=== PATIENT | female | born 1995 | race Caucasian/White ===

== ENCOUNTER 2023-07-12 20:58 | Emergency (ER) | payer BC, SELFPAY ==
--- OUTSIDE RECORDS SUMMARY | 2023-07-12 21:01 | XMS REPORT | Continuity of Care Document ---
:1995 Author Organization [facility] t Address [address] [place] [address] [address] [place] [address] Care Team Providers Name Role Phone PCP, PATIENT DOES NOT HAVE A Primary Care Physician Unavaila MARINA Welch Attending Clinician Unavailable Marina Syed MD Attending Clinician Unknown, Attending Attending Clinician Unavailable Doctor Unassigned, [place] Attending Clinician Unavailable SHEILA MELARA Attending Clinician Unavailable Only, Ang Db Test Attending Clinician Unavailable Sheila Centeno Attending Clinician Payers Payer Name Policy Type Policy Number Effective Date Expiration Date [id number] 00:00:00 OUT OF STATE Problems This patient has no known problems. Allergies, Adverse Reactions, Alerts Allergy Allergy Status Severity Reaction(s) Onset Inactive Treating Comm ents Source Name Type Date Date Clinician CODEINE DRUG Active Unknown-Cmnt Uni vers INGREDI 01-23 ity of 00:00: 00 Medical Branch HYDROCOD DRUG Active Unknown-Cmnt Un temla ONE INGREDI -17 ity of 00:00: 00 Medical Branch Codeine Propensi Active Unknown - Univ ers ty to See comments 01-23 ity of adverse 00:00: [place] reaction 00 Medical Branch Hydrocod Propensi Active Unknown - Uni vers one ty to See comments - ity of adverse 00:00: [place] reaction 00 Medical [facility] NO KNOWN Drug Active Univers ALLERGIE Class ity of S [facility] Social History Social Habit Start Date Stop Date Quantity Comments Source Exposure to 2023-01-13 2023-01-23 Not sure [facility] SARS-CoV-2 (event) 00:00:00 12:09:00 Medica l Branch Sex Assigned At [birth year] [facility] y of [place] 00:00:00 00:00:00 Medical Branch Smoking Status Start Date Stop Date Source Tobacco smoking consumption [facility] unknown [place] Medications Ordered Filled Start Stop Current Ordering Indication Dosage Frequency Signature Comments Components Source Medication Medication Date Date Medication? Clinician (SIG) Name Name maalox:diph Yes [id number] 10mL Swish and Univers enhydrAMINE 4-17 spit out ity of :lidocaine 00:00: 10 mL [place] 2 % viscous 00 every 8 Medic al 1:1:1 (eight) Branch hours as needed for Oral mucositis. maalox:diph Yes [id number] 10mL Swish and Univers enhydrAMINE 4-17 spit out ity of :lidocaine 00:00: 10 mL [place] 2 % viscous 00 every 8 Medic al 1:1:1 (eight) Branch hours as needed for Oral mucositis. amoxicillin 2022- No [id number] 500mg Take 1 Univers 500 mg 01-23 tablet by ity of tablet 00:00: 04:59 mouth in [place] 00 :00 the Medical morning Branch and 1 tablet in the evening. Do all this for 10 days. amoxicillin 2022- No [id number] 500mg Take 1 Univers 500 mg -02-03 tablet by ity of tablet 00:00: 04:59 mouth in [place] 00 :00 the [facility] morning Branch and 1 tablet in the evening. Do all this for 10 days. Vital Signs Vital Name Observation Time Observation Value Comments Source Systolic blood 2023-01-23 17:39:00 131 mm[Hg] Univer sity of pressure [facility] Diastolic blood 2023-01-23 17:39:00 75 mm[Hg] [facility] 2023-01-23 17:39:00 94 /min [facility] Body temperature 2023-01-23 17:39:00 37 Deb [facility] [place] [facility] Respiratory rate 2023-01-23 17:39:00 14 /min [facility] Body height 2023-01-23 17:39:00 154.9 cm [facility] Body weight 2023-01-23 17:39:00 77.157 kg [facility] BMI 2023-01-23 17:39:00 32.14 kg/m2 [facility] Oxygen saturation in 2023-01-23 17:39:00 99 /min University Arterial blood by [facility] Pulse oximetry [place] Procedures Procedure Date / Time Performed Performing Clinician Sourc e POCT MOLECULAR STREP 2023-01-23 17:42:00 Unknown, Attending Univ [facility] CONSENT/REFUSAL FOR 2023-01-23 17:08:32 Doctor Unassigned, No Un [facility] DIAGNOSIS AND Name [facility] TREATMENT Encounters Start End Encounter Admission Attending Care Care Encounter Source Date/Time Date/Time Type Type Clinicians Facility Department ID 2023-01-23 2023-01-23 Outpatient R ESTEVAN [facility] [id number] Univers 12:20:00 13:10:53 MARINA ity [facility] 2023-01-23 2023-01-23 Urgent Marina Syed [facility] [id number] [id number] Univers 12:20:00 12:40:00 Care Unknown, Attending [facility] [id number] ity of [place] [id number] Tae as EDDIE?BLEA [phone] [address] MEDICAL OFFICE BUILDING 2023-01-23 2023-01-23 Orders Doctor TAYE [id number] Univers 00:00:00 00:00:00 Only Unassigned, ANDRES [id number] ity of [place] [facility] [id number] Tae as [phone] [place] [address] Branch 2023-01-23 2023-01-23 Letter Estevan [facility] [id number] Univers 00:00:00 00:00:00 (Out) [facility] [id number] it y of [place] [id number] Tae as EDDIE?BLEA [id number] [address] MEDICAL OFFICE BUILDING 2021-10-15 2021-10-15 Outpatient R KELTON [facility] [id number] Univers 18:30:00 18:54:46 SHEILA ity o f [facility] 2021-10-15 2021-10-15 Laboratory Only, Ang Db Test [facility] 1.2.8 40.114 [id number] Univers 18:30:00 18:45:00 Only Sheila Melara [facility] [id number] ity of [place] [id number] Tae as EDDIE?BLEA [phone] [place] [address] MEDICAL OFFICE BUILDING 2021-10-15 2021-10-15 Letter Doctor TAYE [id number] [place] [address] 00:00:00 00:00:00 (Out) Unassigned, ANDRES [id number] ity of [place] [facility] [id number] Tae as [phone] [address] 2021-10-13 2021-10-13 Outpatient R [facility] [id number] Univers 11:30:00 11:30:00 [facility] Results Test Description Test Time Test Comments Results Result Comments Source POCT MOLECULAR STREP 2023-01-23 17:49:47 Test Item Value Reference Range Interpretation Comme nts POCT Molecular Strep (test code = 10040-9) Negative Negative Lab Interpretation (test code = 06968-8) Normal [facility]
[2023-07-12 21:37] LABS: Specific Gravity 1.026 (1.005-1.030)
[2023-07-12] MEDS ORDERED: BUPIVACAINE 0.5% PF 10 ML VIAL ONE (21:37)
[2023-07-12] MEDS ORDERED: LIDOCAINE 1% MPF 5 ML VIAL ONE (21:37)
[2023-07-12 21:38] LABS: Specific Gravity 1.026 (1.005-1.030); Urine Bilirubin NEGATIVE (Negative); Urine Blood 2+ (Negative); Urine Clarity Clear (Clear); Urine Color Light-Yellow (Yellow); Urine Glucose NEGATIVE (Negative); Urine Protein NEGATIVE (Negative); Urine RBC None Seen /HPF (None Seen); Urine Urobilinogen Normal (Normal)
[2023-07-12 21:39] LABS: Urine Bacteria None Seen /HPF (<20)
--- NOTE | 2023-07-12 22:09 | EDPHYS ---
Physician Documentation [facility] Name: Alannah Givens Age: 28 yrs Sex: Female : 1995 Arrival Date: 07/12/2023 Time: 20:58 Bed 10 Private MD: ED Physician Bertrand Fischer HPI: 07/12 21:48 This 28 yrs old Female presents to ER via Ambulatory with complaints of Toe Injury, kb Vaginal Bleeding. 21:48 The patient presents with vaginal bleeding that is. Onset: The symptoms/episode kb began/occurred 2 day(s) ago. Modifying factors: The symptoms are alleviated by nothing, the symptoms are aggravated by nothing. Associated signs and symptoms: Pertinent positives: vaginal bleeding. Severity of symptoms: At their worst the symptoms were mild, in the emergency department the symptoms are unchanged. The patient has not experienced similar symptoms in the past. The patient has not recently seen a physician. Pt reports she had her period on 07/01 but it was a few days late. States it completed, then she started spotting again 2 days ago. Came to make sure she wasn't and having a miscarriage. Also reports she hit her right great toe 1.5 weeks ago and her nail flipped up. States she has been keeping a bandage one it, but the nail still comes up and causes pain so she would like the nail removed. . 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 - Social history:: Smoking status: Reported history of juuling and/or vaping. ROS: 21:47 Constitutional: Negative for fever, chills, and weight loss, kb 21:47 : Positive for vaginal bleeding, 21:47 MS/extremity: Positive for partial nail avulsion, 21:47 All other systems are negative, Exam: 21:47 Constitutional: This is a well developed, well nourished patient who is awake, alert, kb and in no acute distress. Head/Face: Normocephalic, atraumatic. ENT: Moist Mucous membranes Cardiovascular: Regular rate Respiratory: Respirations even and unlabored. No increased work of breathing. Talking in full sentences Abdomen/GI: Soft, non-tender. No distention Skin: Warm, dry with normal turgor. Normal color. Neuro: Awake and alert, GCS 15, oriented to person, place, time, and situation. Moves all extremities. Normal gait. 21:47 Musculoskeletal/extremity: Nails: partial avulsion, of the right first toe, Vital Signs: 21:11 BP 138 / 74; Pulse 74; Resp 18 S; Temp 97.7(TE); Pulse Ox 100% on R/A; Weight 68.04 kg; cm10 Height 5 ft. 1 in. ; Pain 5/10; 21:11 Body Mass Index 28.34 (68.04 kg, 154.94 cm) cm10 21:11 Pain Scale: Adult cm10 Procedures: 21:46 Nerve block: (digital) of right first toe Medication: Lidocaine 1% without epinephrine kb Marcaine 0.5%, Amount: 4 mls were injected, Effect: the patient has resolution of the pain, Set up for procedure. Performed by Krista CALHOUN Patient tolerated well. MDM: 21:08 Patient medically screened. kb 21:48 Data reviewed: vital signs, nurses notes. kb 21:50 Differential diagnosis: menorrhea, urinary tract infection. Counseling: I had a kb detailed discussion with the patient and/or guardian regarding the historical points, exam findings, and any diagnostic results supporting the discharge/admit diagnosis, lab results, the need for outpatient follow up, an OB/Gyne specialist, to return to the emergency department if symptoms worsen or persist or if there are any questions or concerns that arise at home. 22:07 ED course: right great toe nail removed. Pt tolerated well. New nail has begun growing kb underneath it. . 07/12 21:17 Order name: Test, Urine; Complete Time: 21:39 kb 07/12 21:17 Order name: Urinalysis w/ reflexes; Complete Time: 21:39 kb Administered Medications: 21:44 Drug: Lidocaine Infiltration (1 %) 1 vials 5 ml Infiltration once; to bedside Volume: 5 mb9 ml; Route: Infiltration; 21:44 Drug: Bupivacaine Infiltration (0.5 %) 1 vials 10 ml Infiltration once Volume: 10 ml; mb9 Route: Infiltration; Disposition: 07/13 00:09 Co-signature as Attending Physician, Bertrand Fischer MD I agree with the assessment sp4 and plan of care. I reviewed the patient's care provided by the Advanced Practice Provider and agree with the diagnosis and treatment plan. Disposition Summary: 07/12/23 22:08 Discharge Ordered Notes: Location: Home kb Condition: Stable kb Diagnosis - nail avulsion - right great toe kb - Irregular menstruation, unspecified kb Followup: kb - With: Emergency Department - When: As needed - Reason: Worsening of condition Followup: kb - With: Private Physician - When: 2 - 3 days - Reason: Recheck today's complaints, Continuance of care, Re-evaluation by your physician Discharge Instructions: - Discharge Summary Sheet kb - Nail Avulsion kb - Abnormal Uterine Bleeding, [id number] kb - Fingernail or Toenail Removal, Adult, Care After kb Forms: - Medication Reconciliation Form kb - Thank You Letter kb - Antibiotic Education kb - Prescription Opioid Use kb - Patient Portal Instructions kb - Leadership Thank You Letter kb Signatures: Dispatcher [employer] EDKrista Milner, CUSTOM FRAME ASSEMBLER-C CUSTOM FRAME ASSEMBLER-Monica James, RN RN mb9 Bertrand Fischer MD MD sp4 Karissa Reyes, RN RN cm10
--- NOTE | 2023-07-12 22:09 | ER ---
Nurse's Notes [facility] Name: Alannah Givens Age: 28 yrs Sex: Female : 1995 Arrival Date: 07/12/2023 Time: 20:58 Bed 10 Private MD: Diagnosis: nail avulsion - right great toe;Irregular menstruation, unspecified Presentation: 07/12 21:11 Chief complaint: Patient states: vaginal bleeding onset 2 days ago. Pt states that she cm10 had her period on 07/01 and that she has had spotting that started 2 days ago. Pt states that this morning she started having more pain and heavier bleeding. Pt also reports pain to her right big toe. Pt states that she hit her toe and broke the toe nail. Pt states having fake nail on her toe. Coronavirus screen: Vaccine status: Patient reports being unvaccinated. Client denies travel out of the [place] in the last 14 days. Ebola Screen: Patient denies travel to an Ebola-affected area in the 21 days before illness onset. No symptoms or risks identified at this time. Initial Sepsis Screen: Does the patient meet any 2 criteria? No. Patient's initial sepsis screen is negative. Does the patient have a suspected source of infection? No. Patient's initial sepsis screen is negative. Risk Assessment: Do you want to hurt yourself or someone else? Patient reports no desire to harm self or others. Onset of symptoms was July 12, 2023. 21:11 Method Of Arrival: Ambulatory cm10 21:11 Acuity: MARY JANE 3 cm10 Triage Assessment: 21:20 General: Appears in no apparent distress. comfortable, Behavior is calm, cooperative. cm10 Pain: Complains of pain in abdomen Pain does not radiate. Pain currently is 5 out of 10 on a pain scale. Quality of pain is described as crampy, Pain began 2-3 days ago. Is continuous, Also complains of. EENT: No deficits noted. No signs and/or symptoms were reported regarding the EENT system. Neuro: No deficits noted. Level of Consciousness is awake, alert, obeys commands, Oriented to person, place, time, situation. Cardiovascular: No deficits noted. Respiratory: No deficits noted. Airway is patent Respiratory effort is even, unlabored, Respiratory pattern is regular, symmetrical. GI: No deficits noted. No signs and/or symptoms were reported involving the gastrointestinal system. : Reports pain in suprapubic area vaginal bleeding that is spotty. Derm: No deficits noted. No signs and/or symptoms reported regarding the dermatologic system. Skin is intact, Skin is pink, warm \T\ dry. Musculoskeletal: No deficits noted. No signs and/or symptoms reported regarding the musculoskeletal system. 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 - Social history:: Smoking status: Reported history of ju[place] and/or vaping. Screenin:22 [facility] ED Fall Risk Assessment (Adult) History of falling in the last 3 months, cm10 including since admission No falls in past 3 months (0 pts) Confusion or Disorientation No (0 pts) Intoxicated or Sedated No (0 pts) Impaired Gait No (0 pts) Mobility Assist Device Used No (0 pt) Altered Elimination No (0 pt) Score/Fall Risk Level 0 - 2 = Low Risk Oriented to surroundings, Maintained a safe environment, Hourly rounding (assess needs \T\ fall precautionary measures) done. Abuse screen: Denies threats or abuse. Denies injuries from another. Nutritional screening: No deficits noted. Tuberculosis screening: No symptoms or risk factors identified. Assessment: 21:30 Reassessment: see triage assessment. mb9 22:11 Reassessment: Patient and/or family updated on plan of care and expected duration. Pain mb9 level reassessed. Patient is alert, oriented x 3, equal unlabored respirations, skin warm/dry/pink. Patient states feeling better. Patient states symptoms have improved. Vital Signs: 21:11 BP 138 / 74; Pulse 74; Resp 18 S; Temp 97.7(TE); Pulse Ox 100% on R/A; Weight 68.04 kg; cm10 Height 5 ft. 1 in. ; Pain 5/10; 21:11 Body Mass Index 28.34 (68.04 kg, 154.94 cm) cm10 21:11 Pain Scale: Adult cm10 ED Course: 21:01 Patient arrived in ED. ag3 21:08 Krista Kimbrough FNP-C is PHCP. kb 21:08 Bertrand Fischer MD is Attending Physician. kb 21:14 Triage completed. cm10 21:15 Arm band placed on Patient placed in an exam room, on a stretcher. cm10 21:19 Monica Dorantes, RN is Primary Nurse. mb9 21:30 Placed in gown. Bed in low position. Call light in reach. Side rails up X 1. Client mb9 placed on continuous cardiac and pulse oximetry monitoring. NIBP monitoring applied. 21:30 Test, Urine Sent. mb9 21:30 Urinalysis w/ reflexes Sent. mb9 22:11 No provider procedures requiring assistance completed. Patient did not have IV access mb9 during this emergency room visit. Administered Medications: 21:44 Drug: Lidocaine Infiltration (1 %) 1 vials 5 ml Infiltration once; to bedside Volume: 5 mb9 ml; Route: Infiltration; 21:44 Drug: Bupivacaine Infiltration (0.5 %) 1 vials 10 ml Infiltration once Volume: 10 ml; mb9 Route: Infiltration; Medication: 21:22 VIS not applicable for this client. cm10 Outcome: 22:08 Discharge ordered by . kb 22:11 Discharged to home ambulatory, mb9 22:11 Condition: stable 22:11 Discharge instructions given to patient, Instructed on discharge instructions, follow up and referral plans. Demonstrated understanding of instructions, follow-up care, 22:12 Patient left the ED. mb9 Signatures: Krista Kimbrough FNP-C FNP-Taina Ashton ag3 Monica Dorantes, RN RN mb9 Karissa Reyes RN RN cm10
[2023-07-12 23:28] VITALS: BP 138/74; TEMP 97.7; O2SAT 100
== END 2023-07-12 22:12 | disposition home or self-care (01) ==
LOC: ER 20:58
PROC: 0HDRXZZ Extraction of Toe Nail, External Approach (ICD-10-PCS; principal; 2023-07-12)
DX: S91.201A Unspecified open wound of right great toe with damage to nail, initial encounter (principal); N92.6 Irregular menstruation, unspecified
CPT/HCPCS: 64450; 81001; 81025; 99284; J2001

== ENCOUNTER 2023-09-11 12:11 | Emergency (ER) | payer SELFPAY ==
--- OUTSIDE RECORDS SUMMARY | 2023-09-11 12:15 | XMS REPORT | Continuity of Care Document ---
:1995 Author Organization [facility] t Address [address] [place] [address] [place] [address] Care Team Providers Name Role Phone PCP, PATIENT DOES NOT HAVE A Primary Care Physician UnavailMARINA Leong Attending Clinician Unavailable Marina Syed MD Attending Clinician Unknown, Attending Attending Clinician Unavailable Doctor Unassigned, [place] Attending Clinician Unavailable SHEILA MELARA Attending Clinician Unavailable Only, Ang Db Test Attending Clinician Unavailable Sheila Centeno Attending Clinician Payers Payer Name Policy Type Policy Number Effective Date Expiration Date S bonnie [id number] 2021 00:00:00 OUT OF STATE Problems This patient has no known problems. Allergies, Adverse Reactions, Alerts Allergy Allergy Status Severity Reaction(s) Onset Inactive Treating Comm ents Source Name Type Date Date Clinician CODEINE DRUG Active Unknown-Cmnt Uni vers INGREDI -17 ity of 00:00: [facility] HYDROCOD DRUG Active Unknown-Cmnt Un telma ONE INGREDI 4-17 ity of 00:00: 00 [facility] Branch Codeine Propensi Active Unknown - Univ ers ty to See comments - ity of adverse 00:00: [place] reaction 00 Medical [facility] Hydrocod Propensi Active Unknown - Uni vers one ty to See comments 4-17 ity of adverse 00:00: [place] reaction 00 [facility] NO KNOWN Drug Active Univers ALLERGIE Class ity of S [facility] [place] Social History Social Habit Start Date Stop Date Quantity Comments Source Exposure to 2023-01-13 2023-01-23 Not sure [facility] SARS-CoV-2 (event) 00:00:00 12:09:00 Medica l Branch Sex Assigned At [birth year] [facility] [place] 00:00:00 00:00:00 Medical Branch Smoking Status Start Date Stop Date Source Tobacco smoking consumption [facility] unknown Branch Medications Ordered Filled Start Stop Current Ordering Indication Dosage Frequency Signature Comments Components Source Medication Medication Date Date Medication? Clinician (SIG) Name Name maalox:diph Yes [id number] 10mL Swish and Univers enhydrAMINE 4-17 spit out ity of :lidocaine 00:00: 10 mL [place] 2 % viscous 00 every 8 Medic al 1:1:1 (eight) Branch hours as needed for Oral mucositis. maalox:diph Yes [id number] 10mL Swish and Univers enhydrAMINE 4-17 spit out ity of :lidocaine 00:00: 10 mL [place] 2 % viscous 00 every 8 Medic al 1:1:1 (eight) Branch hours as needed for Oral mucositis. amoxicillin 3- No [id number] 500mg Take 1 Univers 500 mg 4-23 01- tablet by ity of tablet 00:00: 04:59 mouth in [place] 00 :00 the Medical morning Branch and 1 tablet in the evening. Do all this for 10 days. amoxicillin 2022- No [id number] 500mg Take 1 Univers 500 mg 4-17 - tablet by ity of tablet 00:00: 04:59 mouth in [place] 00 :00 the Medical morning Branch and 1 tablet in the evening. Do all this for 10 days. Vital Signs Vital Name Observation Time Observation Value Comments Source Systolic blood 2023-01-23 17:39:00 131 mm[Hg] Univer sity of pressure [facility] [place] Diastolic blood 2023-01-23 17:39:00 75 mm[Hg] Unive rsity of [facility] Heart rate 2023-01-23 17:39:00 94 /min [facility] Body temperature 2023-01-23 17:39:00 37 Deb [facility] Respiratory rate 2023-01-23 17:39:00 14 /min [facility] Body height 2023-01-23 17:39:00 154.9 cm [facility] Body weight 2023-01-23 17:39:00 77.157 kg [facility] BMI 2023-01-23 17:39:00 32.14 kg/m2 [facility] Oxygen saturation in 2023-01-23 17:39:00 99 /min [facility] Arterial blood by [facility] Pulse oximetry [place] Procedures Procedure Date / Time Performed Performing Clinician Blanca e POCT MOLECULAR STREP 2023-01-23 17:42:00 Unknown, Attending [facility] CONSENT/REFUSAL FOR 2023-01-23 17:08:32 Doctor Unassigned, No Un [facility] DIAGNOSIS AND Name [facility] TREATMENT Encounters Start End Encounter Admission Attending Care Care Encounter Source Date/Time Date/Time Type Type Clinicians Facility Department ID 2023-01-23 2023-01-23 Outpatient R ESTEVAN [facility] [id number] Univers 12:20:00 13:10:53 MARINA ity of [facility] [place] 2023-01-23 2023-01-23 Urgent Marina Syed [facility] [id number] [id number] Univers 12:20:00 12:40:00 Care Unknown, Attending HEALTH [id number] ity of [place] [id number] Tae as EDDIE?BLEA [phone] [address] MEDICAL OFFICE BUILDING 2023-01-23 2023-01-23 Orders Doctor TAYE 1.2.840.114 [id number] Univers 00:00:00 00:00:00 Only Unassigned, ANDRES 350.1.13.10 ity of [place] [facility] [id number] Tae as [id number] [place] [address] Branch 2023-01-23 2023-01-23 Letter Estevan [facility] 1.2.840.114 [id number] Univers 00:00:00 00:00:00 (Out) [facility] [id number] it y of [place] [id number] Tae as EDDIE?BLEA [phone] [address] MEDICAL OFFICE BUILDING 2021-10-15 2021-10-15 Outpatient R KELTON [facility] [id number] Univers 18:30:00 18:54:46 SHEILA itkristal o f [facility] [place] 2021-10-15 2021-10-15 Laboratory Only, Ang Db Test [facility] 1.2.8 40.114 [id number] Univers 18:30:00 18:45:00 Only Sheila Melara [facility] 350.1.13.10 ity of [place] [id number] Tae as EDDIE?BLEA [phone] [place] [address] MEDICAL OFFICE [facility] 2021-10-15 2021-10-15 Letter Doctor TAYE 1.2.840.114 [id number] Univers 00:00:00 00:00:00 (Out) Unassigned, ANDRES 350.1.13.10 ity of [place] [facility] [id number] Tae as [phone] [address] 2021-10-13 2021-10-13 Outpatient R [facility] [id number] Univers 11:30:00 11:30:00 ity [facility] Results Test Description Test Time Test Comments Results Result Comments Source POCT MOLECULAR STREP 2023-01-23 17:49:47 Test Item Value Reference Range Interpretation Comme nts POCT Molecular Strep (test code = 18765-9) Negative Negative Lab Interpretation (test code = 41550-4) Normal [facility]
[2023-09-11 13:31] LABS: SARS-CoV-2 Antigen Rapid Res Negative (Negative)
--- NOTE | 2023-09-11 14:58 | ER ---
Nurse's Notes [facility] Name: Alannah Givens Age: 28 yrs Sex: Female : 1995 Arrival Date: 09/11/2023 Time: 12:11 Bed DIS6 Private MD: Diagnosis: Acute bronchitis, unspecified Presentation: 09/11 13:06 Chief complaint: Patient states: had a bad cough this week, chest congestion, stuffy iw nose, can't hear out of ears, pain behind ears and in left ribs, feels dehydrated. Coronavirus screen: Client presents with at least one sign or symptom that may indicate coronavirus-19. Ebola Screen: Patient negative for fever greater than or equal to 101.5 degrees Fahrenheit, and additional compatible Ebola Virus Disease symptoms Patient denies exposure to infectious person. Patient denies travel to an Ebola-affected area in the 21 days before illness onset. No symptoms or risks identified at this time. Risk Assessment: Do you want to hurt yourself or someone else? Patient reports no desire to harm self or others. 13:06 Method Of Arrival: Ambulatory iw 13:06 Acuity: MARY JANE 4 iw Historical: - Allergies: 13:07 HYDROCODONE; iw 13:07 Codeine; iw - Home Meds: 13:07 None [Active]; iw - PMHx: 13:07 None; iw - PSHx: 13:07 None; iw Vital Signs: 13:06 BP 134 / 89; Pulse 93; Resp 16; Temp 98.9; Pulse Ox 100% ; Weight 70.31 kg; Height 5 iw ft. 1 in. ; Pain 5/10; 13:06 Body Mass Index 29.29 (70.31 kg, 154.94 cm) iw 13:06 Pain Scale: Adult iw ED Course: 12:14 Patient arrived in ED. im 12:23 Emely Cadena FNP-C is PHCP. snw 12:23 Ryan Hernandez MD is Attending Physician. snw 13:07 Triage completed. iw Administered Medications: 15:19 Drug: predniSONE PO 40 mg PO once Route: PO; jl7 15:19 Drug: Famotidine PO 20 mg PO once Route: PO; jl7 15:19 Drug: ZyrTEC - Cetirizine PO 10 mg PO once Route: PO; jl7 Outcome: 14:58 Discharge ordered by MD. slaughter 15:20 Patient left the ED. jl7 Signatures: Emely Cadena, INTERNATIONAL FLIGHT ATTENDANT-C INTERNATIONAL FLIGHT ATTENDANT-Hiralw Kaylynn Santiago, RN ELE iw Geovani Palencia RN RN [email or web address] Adriana Hough
--- NOTE | 2023-09-11 14:59 | EDPHYS ---
Physician Documentation [facility] Name: Alannah Givens Age: 28 yrs Sex: Female : 1995 Arrival Date: 09/11/2023 Time: 12:11 Bed DIS6 Private MD: ED Physician Ryan Hernandez HPI: 09/11 15:03 This 28 yrs old Female presents to ER via Ambulatory with complaints of Chest snw Congestion, Nasal Congestion. 15:03 Onset: The symptoms/episode began/occurred acutely, 1 week(s) ago, and became snw persistent. Modifying factors: The patient symptoms are alleviated by nothing, the patient symptoms are aggravated by stimulation, environment. The patient has experienced similar episodes in the past. The patient has not recently seen a physician. Historical: - Allergies: 13:07 HYDROCODONE; iw 13:07 Codeine; iw - Home Meds: 13:07 None [Active]; iw - PMHx: 13:07 None; iw - PSHx: 13:07 None; iw ROS: 15:00 Eyes: Negative for injury, pain, redness, and discharge, snw 15:00 Neck: Negative for injury, pain, and swelling, Cardiovascular: Negative for chest pain, palpitations, and edema, 15:00 Abdomen/GI: Negative for abdominal pain, nausea, vomiting, diarrhea, and constipation, Back: Negative for injury and pain, : Negative for injury, bleeding, discharge, and swelling, MS/Extremity: Negative for injury and deformity, Skin: Negative for injury, rash, and discoloration, Neuro: Negative for headache, weakness, numbness, tingling, and seizure, Psych: Negative for depression, anxiety, suicide ideation, homicidal ideation, and hallucinations, 15:00 Constitutional: Positive for body aches, malaise, 15:00 ENT: Positive for hearing loss, nasal discharge, sinus congestion, 15:00 Respiratory: Positive for cough, shortness of breath, wheezing, Exam: 15:01 Constitutional: This is a well developed, well nourished patient who is awake, alert, snw and in no acute distress. Head/Face: Normocephalic, atraumatic. Eyes: Pupils equal round and reactive to light, extra-ocular motions intact. Lids and lashes normal. Conjunctiva and sclera are non-icteric and not injected. Cornea within normal limits. Periorbital areas with no swelling, redness, or edema. ENT: Nares patent. No nasal discharge, no septal abnormalities noted. Tympanic membranes are not visualized as external auditory canals are impacted with cerumen. Oropharynx with no redness, swelling, or masses, exudates, or evidence of obstruction, uvula midline. Mucous membranes moist. Neck: Trachea midline, no thyromegaly or masses palpated, and no cervical lymphadenopathy. Supple, full range of motion without nuchal rigidity, or vertebral point tenderness. No Meningismus. Chest/axilla: Normal chest wall appearance and motion. Nontender with no deformity. No lesions are appreciated. Cardiovascular: Regular rate and rhythm with a normal S1 and S2. No gallops, murmurs, or rubs. Normal PMI, no JVD. No pulse deficits. Abdomen/GI: Soft, non-tender, with normal bowel sounds. No distension or tympany. No guarding or rebound. No evidence of tenderness throughout. Back: No spinal tenderness. No costovertebral tenderness. Full range of motion. Skin: Warm, dry with normal turgor. Normal color with no rashes, no lesions, and no evidence of cellulitis. MS/ Extremity: Pulses equal, no cyanosis. Neurovascular intact. Full, normal range of motion. Neuro: Awake and alert, GCS 15, oriented to person, place, time, and situation. Cranial nerves II-XII grossly intact. Motor strength 5/5 in all extremities. Sensory grossly intact. Cerebellar exam normal. Normal gait. Psych: Awake, alert, with orientation to person, place and time. Behavior, mood, and affect are within normal limits. 15:01 Respiratory: the patient does not display signs of respiratory distress, Respirations: normal, Breath sounds: wheezing: expiratory that is moderate, is heard diffusely, Vital Signs: 13:06 BP 134 / 89; Pulse 93; Resp 16; Temp 98.9; Pulse Ox 100% ; Weight 70.31 kg; Height 5 iw ft. 1 in. ; Pain 5/10; 13:06 Body Mass Index 29.29 (70.31 kg, 154.94 cm) iw 13:06 Pain Scale: Adult iw MDM: 13:20 Patient medically screened. snw 15:01 Differential diagnosis: viral Infection, bacterial infection. Data reviewed: vital snw signs, nurses notes, lab test result(s). I considered the following discharge prescriptions or medication management in the emergency department Medications were administered in the Emergency Department. See MAR. Counseling: I had a detailed discussion with the patient and/or guardian regarding the historical points, exam findings, and any diagnostic results supporting the discharge/admit diagnosis, the presence of at least one elevated blood pressure reading (>120/80) during this emergency department visit, lab results, the need for outpatient follow up, for definitive care, to return to the emergency department if symptoms worsen or persist or if there are any questions or concerns that arise at home. Special discussion: I have referred the patient to see his PCP for further evaluation of high blood pressure. Based on the history and exam findings, there is no indication for further emergent testing or inpatient evaluation. I discussed with the patient/guardian the need to see the primary care provider for further evaluation of the symptoms. 09/11 12:38 Order name: Flu; Complete Time: 14:15 snw 09/11 12:38 Order name: Strep; Complete Time: 13:38 snw 09/11 13:09 Order name: SARS RAPID; Complete Time: 13:38 iw 09/11 13:34 Order name: Throat Culture EDMS Administered Medications: 15:19 Drug: predniSONE PO 40 mg PO once Route: PO; jl7 15:19 Drug: Famotidine PO 20 mg PO once Route: PO; jl7 15:19 Drug: ZyrTEC - Cetirizine PO 10 mg PO once Route: PO; jl7 Disposition: 16:57 Co-signature as Attending Physician, Ryan Hernandez MD I reviewed the patient's care rn provided by the Advanced Practice Provider and agree with the diagnosis and treatment plan. Disposition Summary: 09/11/23 14:58 Discharge Ordered Notes: Location: Home snw Condition: Stable snw Diagnosis - Acute bronchitis, unspecified snw Followup: snw - With: Emergency Department - When: As needed - Reason: Worsening of condition Followup: snw - With: Private Physician - When: 2 - 3 days - Reason: Recheck today's complaints, Continuance of care, Re-evaluation by your physician Discharge Instructions: - Discharge Summary Sheet snw - Acute Bronchitis, Adult snw - Rehydration, Adult snw Forms: - Work release form snw - Medication Reconciliation Form snw - Thank You Letter snw - Antibiotic Education snw - Prescription Opioid Use snw - Patient Portal Instructions snw - Leadership Thank You Letter snw Prescriptions: - albuterol sulfate 90 mcg/actuation Inhalation HFA Aerosol Inhaler - inhale 2 puff INHALATION route every 6 hours as needed for bronchospasm; 2 snw Unspecified; Refills: 0, Product Selection Permitted - Zyrtec 10 mg Oral Tablet - take 1 tablet ORAL route once daily As needed; 20 tablet; Refills: 0, Product snw Selection Permitted - Prednisone 20 mg Oral Tablet - take 2 tablets ORAL route once daily for 5 days; 10 tablet; Refills: 0, Product snw Selection Permitted - Pepcid 20 mg Oral Tablet - take 1 tablet ORAL route once daily; 20 tablet; Refills: 0, Product Selection snw Permitted Signatures: Dispatcher [employer] EDEmely Rich FNP-C CRIME SCENE SPECIALIST-Csnw Kaylynn Santiago, RN Ryan Burton MD MD rn Leal, Jahala, RN RN jl7
[2023-09-11] MEDS ORDERED: predniSONE 20 MG TAB ONE (15:28)
[2023-09-11] MEDS ORDERED: FAMOTIDINE 20 MG TAB ONE (15:28)
[2023-09-11] MEDS ORDERED: CETIRIZINE HCL 5 MG TABLET ONE (15:28)
[2023-09-11 15:35] VITALS: BP 134/89; TEMP 98.9; O2SAT 100
== END 2023-09-11 15:20 | disposition home or self-care (01) ==
LOC: ER 12:11
DX: J20.9 Acute bronchitis, unspecified (principal); Z11.52 Encounter for screening for COVID-19
CPT/HCPCS: 36415; 87070; 87081; 87804; 87811; 99282; J7512

== ENCOUNTER 2024-01-23 19:31 | Emergency (ER) | payer SELFPAY ==
--- OUTSIDE RECORDS SUMMARY | 2024-01-23 19:33 | XMS REPORT | Continuity of Care Document ---
Author Name Unknown Address [address] [facility] [address] [place] [id number] [facility] thconnect Address [address] [facility] [place] [address] Care Team Providers Care It Engineer Name Role Phone PCP, PATIENT DOES NOT HAVE A Primary Care Physic garrison MARINA Mcguire Attending Clinician Unavailable Marina Barreto MD Attending Clinician Unknown, Attending Attending Clinician Unavailab le Doctor Unassigned, [place] Attending Clinician U navailable SHEILA MELARA Attending Clinician Unavailandry e Only, Ang Db Test Attending Clinician UnavailSheila Segura Attending Clinician [phone] Payers Payer Name Policy Type Policy Number Effective Date Expirati on Date Source [facility] [id number] 2021 00:00:00 Allergies, Adverse Reactions, Alerts Allergy Name Allergy Type Status Severity Reaction(s) Onset Date Inactive Date Treating Clinician Comments Source CODEINE DRUG INGREDI Active Unknown-Cmnt 01-23 00:00: [address] [facility] HYDROCOD ONE DRUG INGREDI Active Unknown-Cmnt 01-23 00:00: 00 [facility] Codeine Propensi ty to adverse reaction s Active Unknown - See comments 01-23 00:00: 00 [facility] Hydrocod one Propensi ty to adverse reaction s Active Unknown - See comments 01-23 00:00: 00 [facility] NO KNOWN ALLERGIE S Drug Class Active [facility] Social History Social Habit Start Date Stop Date Quantity Comments Source Exposure to SARS-CoV-2 (event) 2023-01-13 00:00:00 2023-01-23 12:09:00 Not sure [facility] Sex Assigned At 1995 00:00:00 1995 00:00:00 [facility] Smoking Status Start Date Stop Date Source Tobacco smoking consumption unknown [facility] Medications Ordered Medication Name Filled Medication Name Start Date Stop Date Current Medication? Ordering Clinician Indication Dosage Frequency Signature (SIG) Comments Components Source maalox:diph enhydrAMINE :lidocaine 2 % viscous 1:1:1 01-23 00:00: 00 Yes [id number] 10mL Swish and spit out 10 mL every 8 (eight) hours as needed for Oral mucositis. [facility] amoxicillin 500 mg tablet 01-23 00:00: 00 02-03 04:59 :00 No [id number] 500mg Take 1 tablet by mouth in the morning and 1 tablet in the evening. Do all this for [address] [facility] Vital Signs Vital Name Observation Time Observation Value Comments S ource Systolic blood pressure 2023-01-23 17:39:00 131 mm[Hg] [facility] Diastolic blood pressure 2023-01-23 17:39:00 75 mm[Hg] [facility] Heart rate 2023-01-23 17:39:00 94 /min [facility] Body temperature 2023-01-23 17:39:00 37 Deb [facility] Respiratory rate 2023-01-23 17:39:00 14 /min [facility] Body height 2023-01-23 17:39:00 154.9 cm [facility] Body weight 2023-01-23 17:39:00 77.157 kg [facility] BMI 2023-01-23 17:39:00 32.14 kg/m2 [facility] Oxygen saturation in Arterial blood by Pulse oximetry 2023-01-23 17:39:00 99 /min [facility] Procedures Procedure Date / Time Performed Performing Clinicia n Source POCT MOLECULAR STREP 2023-01-23 17:42:00 Unknown, Atte pura [facility] CONSENT/REFUSAL FOR DIAGNOSIS AND TREATMENT 2023-01-23 17:08:32 Doctor Unassigned, [place] [facility] Encounters Start Date/Time End Date/Time Encounter Type Admission Type Attending [facility] Care Facility Care Department Encounter ID Source 2023-01-23 12:20:00 2023-01-23 13:10:53 Outpatient R MARINA BARRETO [facility] [id number] [facility] 2023-01-23 12:20:00 2023-01-23 12:40:00 Urgent Care Kunal Marina Unknown, Attending [facility] 1..840.114 [id number] [facility] 2023-01-23 00:00:00 2023-01-23 00:00:00 Orders Only Doctor Unassigned, [place] [facility] 1.840.114 [id number] [id number] [facility] 2023-01-23 00:00:00 2023-01-23 00:00:00 Letter (Out) Marina Barreto [facility] 1..840.114 350.1.13.10 [id number] [facility] 2021-10-15 18:30:00 2021-10-15 18:54:46 [id number] 2021-10-15 18:30:00 2021-10-15 18:45:00 Laboratory Only Only, Ang Db [facility] 1..840.114 350.1.13.10 [id number] [facility] 2021-10-15 00:00:00 2021-10-15 00:00:00 Letter (Out) Doctor Unassigned, [place] [facility] [id number] [id number] [id number] [facility] 2021-10-13 11:30:00 2021-10-13 11:30:00 Outpatient R [facility] [id number] [facility] Results Test Description Test Time Test Comments Results Result Co mments Source [facility]
--- NOTE | 2024-01-23 19:50 | EDPHYS ---
Physician Documentation [facility] Name: Alannah Givens Age: 28 yrs Sex: Female : 1995 Arrival Date: 01/23/2024 Time: 19:31 Bed IW1 Private MD: ED Physician Clifford Molina HPI: 01/22 20:54 This 28 yrs old Female presents to ER via Ambulatory with complaints of Insect Bite. kb 20:54 Patient is a 28-year-old female presents for insect bite to left calf that occurred kb yesterday. States the area has gotten swollen, painful and more red today. Denies fever.. 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 - Infectious Disease History:: Denies. - Social history:: Smoking status: Reported history of juuling and/or vaping. ROS: 20:53 Constitutional: As per HPI kb Exam: 20:53 Constitutional: This is a well developed, well nourished patient who is awake, alert, kb and in no acute distress. Head/Face: Normocephalic, atraumatic. ENT: Moist Mucous membranes Cardiovascular: Regular rate Respiratory: Respirations even and unlabored. No increased work of breathing. Talking in full sentences MS/ Extremity: Pulses equal, no cyanosis. Neurovascular intact. Full, normal range of motion. Neuro: Awake and alert, GCS 15, oriented to person, place, time, and situation. Moves all extremities. Normal gait. 20:53 Skin: abscess, that is small, of the lateral aspect of left calf, Vital Signs: 19:35 BP 120 / 77; Pulse 85; Resp 18 S; Temp 97.4(TE); Pulse Ox 100% on R/A; Weight 72.57 kg as6 (R); Height 5 ft. 1 in. (R); Pain 8/10; 19:35 Body Mass Index 30.23 (72.57 kg, 154.94 cm) as6 19:35 Pain Scale: Adult as6 MDM: 19:40 Patient medically screened. kb 20:53 Data reviewed: vital signs, nurses notes. kb 20:54 Differential diagnosis: abscess, allergic reaction, cellulitis, insect bite. kb Counseling: I had a detailed discussion with the patient and/or guardian regarding the historical points, exam findings, and any diagnostic results supporting the discharge/admit diagnosis, the need for outpatient follow up, a family practitioner, to return to the emergency department if symptoms worsen or persist or if there are any questions or concerns that arise at home. Administered Medications: No medications were administered Disposition Summary: 01/23/24 19:49 Discharge Ordered Notes: Location: Home kb Condition: Stable kb Diagnosis - Cutaneous abscess of left lower limb kb Followup: kb - With: Emergency Department - When: As needed - Reason: Worsening of condition Followup: kb - With: Private Physician - When: 2 - 3 days - Reason: Recheck today's complaints, Continuance of care, Re-evaluation by your physician Discharge Instructions: - Discharge Summary Sheet kb - Skin Abscess, [id number] kb Forms: - Medication Reconciliation Form kb - Thank You Letter kb - Antibiotic Education kb - Prescription Opioid Use kb - Patient Portal Instructions kb - Leadership Thank You Letter kb Prescriptions: - Bactrim DS 800-160 mg Oral Tablet - take 1 tablet ORAL route every 12 hours for 10 days; 20 tablet; Refills: 0, kb Product Selection Permitted Addendum: 01/26/2024 01:01 I was immediately available for consultation during this patient's visit. I did not e c2 personally see the patient or discuss the patient with the TAY. . Signatures: Krista Kimbrough, Ulices Nguyen, ELE RN as6 Clifford Molina MD MD ec2
--- NOTE | 2024-01-23 19:50 | ER ---
Nurse's Notes [facility] Name: Alannah Givens Age: 28 yrs Sex: Female : 1995 Arrival Date: 01/23/2024 Time: 19:31 Bed IW1 Private MD: Diagnosis: Cutaneous abscess of left lower limb Presentation: 01/22 19:37 Chief complaint: Patient states: pt got bit by an unknown insect and noticed yesterday as6 the site was red and hot. pt reports increased pain to the site. Coronavirus screen: At this time, the client does not indicate any symptoms associated with coronavirus-19. Ebola Screen: No symptoms or risks identified at this time. Initial Sepsis Screen: Does the patient meet any 2 criteria? No. Patient's initial sepsis screen is negative. Does the patient have a suspected source of infection? No. Patient's initial sepsis screen is negative. Risk Assessment: Do you want to hurt yourself or someone else? Patient reports no desire to harm self or others. Onset of symptoms was January 22, 2024. 19:37 Acuity: MARY JANE 5 as6 19:37 Method Of Arrival: Ambulatory as6 Triage Assessment: 19:38 Bite description: bite sustained to lateral aspect of left calf by an unknown animal. as6 General: Appears in no apparent distress. Behavior is calm, cooperative. Pain: Complains of pain in left leg. Injury Description: Bite sustained to lateral aspect of left calf caused by an unknown animal, is from insect red, warm to touch. 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 - Infectious Disease History:: Denies. - Social history:: Smoking status: Reported history of juuling and/or vaping. Screenin:39 [facility] ED Fall Risk Assessment (Adult) History of falling in the last 3 months, as6 including since admission No falls in past 3 months (0 pts) Confusion or Disorientation No (0 pts) Intoxicated or Sedated No (0 pts) Impaired Gait No (0 pts) Mobility Assist Device Used No (0 pt) Altered Elimination No (0 pt) Score/Fall Risk Level 0 - 2 = Low Risk Oriented to surroundings, Maintained a safe environment, Educated pt \T\ family on fall prevention, incl call for assistance when getting out of bed, Assessed \T\ reinforced patient's understanding of fall precautions. Abuse screen: Denies threats or abuse. Denies injuries from another. Nutritional screening: No deficits noted. Tuberculosis screening: No symptoms or risk factors identified. Vital Signs: 19:35 BP 120 / 77; Pulse 85; Resp 18 S; Temp 97.4(TE); Pulse Ox 100% on R/A; Weight 72.57 kg as6 (R); Height 5 ft. 1 in. (R); Pain 8/10; 19:35 Body Mass Index 30.23 (72.57 kg, 154.94 cm) as6 19:35 Pain Scale: Adult as6 ED Course: 19:33 Patient arrived in ED. jj6 19:36 Arm band placed on. as6 19:38 Triage completed. as6 19:40 Krist[facility]imbrough [facility]C [facility] kb 19:40 Clifford Molina MD is Attending Physician. kb 19:52 Patient has correct armband on for positive identification. Provided Education on: rx as6 teaching . 19:52 No provider procedures requiring assistance completed. Patient did not have IV access as6 during this emergency room visit. Administered Medications: No medications were administered Medication: 19:39 VIS not applicable for this client. as6 Outcome: 19:49 Discharge ordered by MD. kb 19:52 Discharged to home ambulatory, as6 19:52 Condition: stable 19:52 Discharge instructions given to patient, Instructed on discharge instructions, follow up and referral plans. medication usage, Demonstrated understanding of instructions, follow-up care, medications, Prescriptions given X 1, 19:53 Patient left the ED. as6 Signatures: Krista Kimbrough FNP-C FNP-Ckb Jeffries, Jennifer jj6 Ulices Moon, ELE RN as6
[2024-01-24 04:52] VITALS: BP 120/77; TEMP 97.4; O2SAT 100
== END 2024-01-23 19:53 | disposition home or self-care (01) ==
LOC: ER 19:31
DX: L02.416 Cutaneous abscess of left lower limb (principal); Z88.5 Allergy status to narcotic agent
CPT/HCPCS: 99283